=== PATIENT | male | born 1970 | race Caucasian/White ===

== ENCOUNTER 2020-09-18 15:11 | Emergency (ER) | payer OTHER ==
[~2020-09-18] VITALS: Ht 167.6 cm; Wt 84.0 kg
[2020-09-18] MEDS ORDERED: DERMABOND TOPICAL SKIN ADHESIVE TOP ONE (17:25)
[2020-09-18 17:46] VITALS: BP 145/87
== END 2020-09-18 17:50 | disposition home or self-care (01) ==
LOC: M ED 15:11
DX: S41.112A Laceration without foreign body of left upper arm, initial encounter (principal); Y92.9 Unspecified place or not applicable; Y93.9 Activity, unspecified; W26.8XXA Contact with other sharp object(s), not elsewhere classified, initial encounter; Y99.0 Civilian activity done for income or pay; Z91.030 Bee allergy status

== ENCOUNTER 2022-01-29 16:53 | Emergency (ER) | payer OTHER ==
[~2022-01-29] VITALS: Ht 167.6 cm; Wt 79.8 kg
[2022-01-29 23:02] VITALS: BP 135/87
[2022-01-30] MEDS ORDERED: diazePAM 10 MG TAB PO ONE (00:25)
[2022-01-30] MEDS ORDERED: KETOROLAC 60MG 2ML VIAL IM ONE (00:25)
[2022-01-30] MEDS ORDERED: LIDOCAINE 5% (LIDODERM) PATCH TD ONE (00:25)
[2022-01-30] MEDS ORDERED: NAPR-837 PO (01:56)
[2022-01-30] MEDS ORDERED: ASPE4PAD TOP (01:56)
[2022-01-30] MEDS ORDERED: METH-1165 PO (01:56)
[2022-01-30] MEDS ORDERED: PERCOCET 5MG/325MG TAB PO ONE (02:00)
[2022-01-30] MEDS ORDERED: OXYCODONE/APAP 5MG/325MG(HOME DOSE PACK) PO ONE (02:00)
== END 2022-01-30 02:14 | disposition home or self-care (01) ==
LOC: M ED 16:53
DX: M54.2 Cervicalgia (principal); R07.89 Other chest pain; M25.511 Pain in right shoulder; Y04.0XXA Assault by unarmed brawl or fight, initial encounter; Y92.9 Unspecified place or not applicable; Y93.9 Activity, unspecified; Y99.0 Civilian activity done for income or pay

== ENCOUNTER → 2022-03-20 | Outpatient (CLI) | payer OTHER ==
[~2022-03-20] MED LIST: ASPE4PAD TOP; METH-1165 PO; NAPR-837 PO
== END ==
LOC: M PLAIMG 06:42
PROVIDERS: ATTEND Orthopaedic Surgery
DX: M50.322 Other cervical disc degeneration at C5-C6 level (principal); M50.23 Other cervical disc displacement, cervicothoracic region; M25.78 Osteophyte, vertebrae; M75.121 Complete rotator cuff tear or rupture of right shoulder, not specified as traumatic

== ENCOUNTER 2022-03-26 08:41 | Outpatient (RCR) | payer OTHER | END 2022-04-02 | LOC: M PT 08:41 | PROVIDERS: ATTEND Orthopaedic Surgery | DX: M54.2 Cervicalgia (principal); M25.511 Pain in right shoulder ==

== ENCOUNTER 2022-04-12 15:01 | Outpatient (RCR) | payer OTHER | END 2022-04-30 | LOC: M PT 15:01 | PROVIDERS: ATTEND Orthopaedic Surgery | DX: M54.2 Cervicalgia (principal); M25.511 Pain in right shoulder ==

== ENCOUNTER 2022-06-21 09:18 | Outpatient (RCR) | payer OTHER | END 2022-06-30 | LOC: M PT 09:18 | PROVIDERS: ATTEND Orthopaedic Surgery | DX: M75.101 Unspecified rotator cuff tear or rupture of right shoulder, not specified as traumatic (principal) ==

== ENCOUNTER 2022-07-19 15:15 | Outpatient (RCR) | payer OTHER | END 2022-07-31 | LOC: M PT 15:15 | PROVIDERS: ATTEND Orthopaedic Surgery | DX: M75.101 Unspecified rotator cuff tear or rupture of right shoulder, not specified as traumatic (principal) ==

== ENCOUNTER 2022-08-29 13:24 | Outpatient (RCR) | payer OTHER | END 2022-08-30 | LOC: M PT 13:24 | PROVIDERS: ATTEND Orthopaedic Surgery | DX: M75.101 Unspecified rotator cuff tear or rupture of right shoulder, not specified as traumatic (principal) ==

== ENCOUNTER 2022-09-11 16:00 | Outpatient (RCR) | payer OTHER | END 2022-09-30 | LOC: M PT 16:00 | PROVIDERS: ATTEND Orthopaedic Surgery | DX: M75.101 Unspecified rotator cuff tear or rupture of right shoulder, not specified as traumatic (principal) ==

== ENCOUNTER → 2022-11-15 | Outpatient (CLI) | payer OTHER | LOC: M SOG 08:44 | PROVIDERS: ATTEND Orthopaedic Surgery | DX: M75.121 Complete rotator cuff tear or rupture of right shoulder, not specified as traumatic (principal) ==

== ENCOUNTER → 2023-05-16 | Outpatient (CLI) | payer OTHER | LOC: M SOG 07:56 | PROVIDERS: ATTEND Orthopaedic Surgery | DX: M75.121 Complete rotator cuff tear or rupture of right shoulder, not specified as traumatic (principal) ==